=== PATIENT | female | born 1950 | race Caucasian/White ===

== ENCOUNTER 2024-01-24 12:05 | Day surgery (SDC) | payer OTHER, MEDICARE ==
[2024-01-18 12:21] VITALS: BMI 18.8
[2024-01-24] MEDS ORDERED: CIPROFLOXACIN 0.3% EYE DROPS 5 ML BOTTLE ONE (12:37)
[2024-01-24] MEDS ORDERED: PHENYLEPHRINE 2.5% OPTHALMIC DROP 2ML BOTTLE ONE (12:37)
[2024-01-24] MEDS ORDERED: CYCLOPENTOLATE 2% OPHTH SOLN 2 ML BOTTLE ONE (12:37)
[2024-01-24] MEDS ORDERED: TROPICAMIDE 1% OPHTH SOLN 15 ML BOTTLE ONE (12:37)
[2024-01-24] MEDS ORDERED: CARBACHOL 0.01% INTRA-OCULAR 1.5 ML VIAL ONE (12:43)
[2024-01-24] MEDS ORDERED: TETRACAINE 0.5% OPHTH SOLN 2 ML BOTTLE ONE (12:43)
[2024-01-24] MEDS ORDERED: NEO/POLYMYX B SULF/DEXAMETH OPHTHALMIC 5ML BOTTLE ONE (12:43)
[2024-01-24] MEDS ORDERED: LIDOCAINE 1% P/F 10 MG/ML VIAL ONE (12:43)
[2024-01-24] MEDS ORDERED: BSS (NA/CA/MG/K) BALANCED SALT SOLUTION OPHTH SOLN 15 ML BOTTLE ONE (12:43)
[2024-01-24] MEDS ORDERED: MIDAZOLAM HCL 2 MG/2 ML SINGLE DOSE VIAL ONE (12:57)
[2024-01-24 14:16] VITALS: RESP 16; TEMP 97.8
[2024-01-24 14:37] VITALS: BP 122/62; PULSE 64
== END 2024-01-24 14:40 | disposition home or self-care (01) ==
LOC: FASU 12:05
PROVIDERS: ATTEND Ophthalmology
PROC: 08RJ3JZ Replacement of Right Lens with Synthetic Substitute, Percutaneous Approach (ICD-10-PCS; 2024-01-24)
PROC: 08PJ3JZ Removal of Synthetic Substitute from Right Lens, Percutaneous Approach (ICD-10-PCS; principal; 2024-01-24 13:51)
DX: H26.8 Other specified cataract (principal)
CPT/HCPCS: 66984; V2632

== ENCOUNTER 2024-06-26 10:54 | Day surgery (SDC) | payer OTHER, MEDICARE ==
[2024-06-21 13:27] VITALS: BMI 18.0
[2024-06-26] MEDS: CYCLOPENTOLATE 2% OPHTH SOLN 2 ML BOTTLE ONE (11:20)
[2024-06-26] MEDS: PHENYLEPHRINE 2.5% OPTHALMIC DROP 2ML BOTTLE ONE (11:20)
[2024-06-26] MEDS: CIPROFLOXACIN 0.3% EYE DROPS 5 ML BOTTLE ONE (11:20)
[2024-06-26] MEDS: TROPICAMIDE 1% OPHTH SOLN 15 ML BOTTLE ONE (11:20)
[2024-06-26 11:28] VITALS: RESP 16
[2024-06-26] MEDS ORDERED: BSS (NA/CA/MG/K) BALANCED SALT SOLUTION OPHTH SOLN 15 ML BOTTLE ONE (11:57)
[2024-06-26] MEDS ORDERED: EPINEPHrine/PF 1 MG/1 ML (1:1,000) AMPULE ONE (11:57)
[2024-06-26] MEDS ORDERED: LIDOCAINE 1% P/F 10 MG/ML VIAL ONE (11:57)
[2024-06-26] MEDS ORDERED: TETRACAINE 0.5% OPHTH SOLN 2 ML BOTTLE ONE (11:57)
[2024-06-26] MEDS ORDERED: CARBACHOL 0.01% INTRA-OCULAR 1.5 ML VIAL ONE (11:58)
[2024-06-26] MEDS ORDERED: NEO/POLYMYX B SULF/DEXAMETH OPHTHALMIC 5ML BOTTLE ONE (11:58)
[2024-06-26] MEDS ORDERED: MIDAZOLAM HCL 2 MG/2 ML SINGLE DOSE VIAL ONE (12:19)
[2024-06-26 12:54] VITALS: TEMP 97.7
[2024-06-26 13:28] VITALS: BP 98/52; PULSE 60
== END 2024-06-26 13:20 | disposition home or self-care (01) ==
LOC: FASU 10:54
PROVIDERS: ATTEND Ophthalmology
PROC: 08RK3JZ Replacement of Left Lens with Synthetic Substitute, Percutaneous Approach (ICD-10-PCS; principal; 2024-06-26 12:23)
DX: H26.8 Other specified cataract (principal)
CPT/HCPCS: 66984; V2632